=== PATIENT | female | born 1940 | race Caucasian/White ===

== ENCOUNTER 2017-07-30 21:55 | Emergency (ER) | payer OTHER ==
[~2017-07-30] VITALS: Ht 162.6 cm; Wt 75.0 kg
[2017-07-30 22:27] LABS: BASOPHIL (%) 0.7 % (0-1); BASOPHIL COUNT 0.1 K/uL (0-0.1); EOSINOPHIL (%) 1.9 % (0-5); EOSINOPHIL COUNT 0.1 K/uL (0-0.3); HEMATOCRIT 44.6 % (36.0-46.0); HEMOGLOBIN 15.3 G/DL (11.9-15.5); IMMATURE GRANULOCYTE (%) 0.9 % (0.0-0.7); LYMPHOCYTE (%) 25.5 % (15-42); LYMPHOCYTE COUNT 1.9 K/uL (1.0-2.8); MCH 31.7 PG (29.0-34.0); MCHC 34.3 G/DL (30.0-36.0); MCV 92.3 FL (83-99); MONOCYTE (%) 6.1 % (3-12); MONOCYTE COUNT 0.5 K/uL (0-0.8); NEUTROPHIL (%) 64.9 % (45-76); NEUTROPHIL COUNT 4.8 K/uL (1.8-6.4); PLATELET COUNT 262 K/uL (156-360); RBC DIS.WIDTH-CV 13.1 % (11.8-14.6); RBC DIS.WIDTH-SD 44.7 % (39-53); RED BLOOD COUNT 4.83 M/uL (3.80-5.20); WHITE BLOOD COUNT 7.4 K/uL (4.1-10.2)
[2017-07-30 22:36] LABS: ALBUMIN 4.3 g/dL (3.2-4.8); CHLORIDE 105 mEq/L (99-109); POTASSIUM 3.5 mEq/L (3.7-5.4); SODIUM 140 mEq/L (136-147)
[2017-07-30 22:37] LABS: AMYLASE 97 IU/L (1-118)
[2017-07-30 22:38] LABS: GLUCOSE 122 mg/dL (70-99); TOTAL PROTEIN 7.8 g/dL (6.4-8.3)
[2017-07-30 22:40] LABS: TOTAL BILIRUBIN 0.6 mg/dL (0.0-1.0)
[2017-07-30 22:41] LABS: SERUM ETHYL ALCOHOL < 10 mg/dL
[2017-07-30 22:42] LABS: ALKALINE PHOSPHATASE 90 IU/L (3-129); CREATININE 0.9 mg/dL (0.6-1.3)
[2017-07-30 22:43] LABS: AST (GOT) 29 IU/L (2-34); UREA NITROGEN (BUN) 23 mg/dL (9-23)
[2017-07-30 22:45] LABS: ALT (GPT) 21 IU/L (3-49)
[2017-07-30 22:53] LABS: GFR ESTIMATE (CALCULATED) > 59 mL/min/
[2017-07-30 23:35] LABS: APPEARANCE CLEAR ((CLEAR)); BILIRUBIN NEGATIVE; BLOOD SMALL; COLOR STRAW ((YELLOW)); GLUCOSE (STRIP) NEGATIVE; KETONES NEGATIVE; LEUKOCYTES SMALL; NITRITE NEGATIVE; PROTEIN (STRIP) NEGATIVE; SPECIFIC GRAVITY 1.012 (1.000-1.030); UROBILINOGEN 0.2 MG/DL (0.2-1.0)
[2017-07-30 23:36] LABS: BACTERIA NONE SEEN /HPF; EPITHELIAL CELLS NONE SEEN /HPF; MUCUS TRACE /LPF; RED BLOOD CELLS 0-5 /HPF (0-5)
[2017-07-30 23:56] LABS: AMPHETAMINE NEGATIVE (500 ng/mL); BARBITURATES NEGATIVE (200 ng/mL); BENZODIAZEPINES NEGATIVE (150 ng/mL); BUPRENORPHINE NEGATIVE (10 ng/mL); COCAINE NEGATIVE (150 ng/mL); METHADONE NEGATIVE (200 ng/mL); METHAMPHETAMINE NEGATIVE (500 ng/mL); OPIATES (MORPHINE) NEGATIVE (100 ng/mL); OXYCODONE NEGATIVE (100 ng/mL); PHENCYCLIDINE NEGATIVE (25 ng/mL); PROPOXYPHENE NEGATIVE (300 ng/mL); THC CANNABINOIDS NEGATIVE (50 ng/mL); TRICYCLIC ANTIDEPRESSANTS NEGATIVE (300 ng/mL)
[2017-07-31] MEDS ORDERED: NORCO 5/3251 TABLET PO (00:07)
[2017-07-31 00:50] VITALS: BP 146/76
== END 2017-07-31 01:07 | disposition home or self-care (01) ==
LOC: TRA 21:55 → EDBD 21:55 → EME 21:55 → TRA 07-31 01:07
PROVIDERS: Emergency Medicine
DX: S16.1XXA Strain of muscle, fascia and tendon at neck level, initial encounter (principal); M54.9 Dorsalgia, unspecified; M25.521 Pain in right elbow; S09.90XA Unspecified injury of head, initial encounter; R07.9 Chest pain, unspecified; R10.9 Unspecified abdominal pain; V43.62XA Car passenger injured in collision with other type car in traffic accident, initial encounter; Y92.410 Unspecified street and highway as the place of occurrence of the external cause; I10 Essential (primary) hypertension; Z95.2 Presence of prosthetic heart valve; K58.0 Irritable bowel syndrome with diarrhea; Z88.0 Allergy status to penicillin
CPT/HCPCS: 70450; 71260; 72125; 72129; 72132; 74177; 80053; 81003; 82150; 85025; 99281; 99285; G0480; J7040